=== PATIENT | male | born 1960 | race Caucasian/White ===

== ENCOUNTER 2017-10-28 17:56 | Emergency (ER) | payer BC ==
[2017-10-28] MEDS ORDERED: COLCHICINE 0.6 MG TAB ONE ×2 (18:56→20:38)
[2017-10-28] MEDS ORDERED: COLCHICINE 0.6 MG TAB PO ONE (19:00)
[2017-10-28] MEDS ORDERED: INDOMETHACIN 25 MG CAP PO ONE (19:00)
[2017-10-28] MEDS ORDERED: MORPHINE 4 MG/ML SYR ONE (19:37)
[2017-10-28] MEDS ORDERED: ONDANSETRON 4 MG (ODT) TAB ONE (19:37)
--- NOTE | 2017-10-28 20:29 | EDPHYS ---
Physician Documentation [facility] Name: Rui Burden Age: 57 yrs Sex: Male : 1960 Arrival Date: 10/28/2017 Time: 17:57 Bed 13 Private MD: ED Physician Jasen Oscar HPI: 10/28 18:38 This 57 yrs old Male presents to ER via Ambulatory with complaints of GOUT. jr8 18:38 The patient or guardian reports pain, swelling, tenderness, redness . The complaints jr8 affect the MCP of left little finger. Context: The problem was sustained at home. Onset: The symptoms/episode began/occurred acutely, today. Modifying factors: The symptoms are alleviated by nothing, the symptoms are aggravated by movement. Associated signs and symptoms: The patient has no apparent associated signs or symptoms. Severity of symptoms: At their worst the symptoms were mild, in the emergency department the symptoms are unchanged. The patient has experienced similar episodes in the past, a few times. The patient has not recently seen a physician. history of gout. Having flare up in left hand which is where he had it the last time . Historical: - Allergies: 18:06 No Known Allergies; tw2 - Home Meds: 18:06 metformin 1,000 mg oral tab [Active]; allopurinol 100 mg Oral tab 1 tab 3 times per day tw2 [Active]; glipizide 5 mg Oral tr24 1 tab once daily [Active]; amlodipine-valsartan 10-320 mg oral tab 1 tab once daily [Active]; lovastatin 40 mg Oral tab 1 tab once daily [Active]; - PMHx: 18:06 Diabetes - NIDDM; Hypertension; tw2 - PSHx: 18:06 Knee surgery; tw2 - Immunization history:: Adult Immunizations up to date. - Social history:: Smoking status: Patient/guardian denies using tobacco, Patient uses alcohol, occasionally. ROS: 18:38 Eyes: Negative for injury, pain, redness, and discharge, ENT: Negative for injury, jr8 pain, and discharge, Neck: Negative for injury, pain, and swelling, Cardiovascular: Negative for chest pain, palpitations, and edema, Respiratory: Negative for shortness of breath, cough, wheezing, and pleuritic chest pain, Abdomen/GI: Negative for abdominal pain, nausea, vomiting, diarrhea, and constipation, Back: Negative for injury and pain, Skin: Negative for injury, rash, and discoloration, Neuro: Negative for headache, weakness, numbness, tingling, and seizure. 18:38 MS/extremity: Positive for erythema, pain, swelling, tenderness, warmth, of the left hand. Exam: 18:38 Cardiovascular: Regular rate and rhythm with a normal S1 and S2. No gallops, murmurs, jr8 or rubs. Normal PMI, no JVD. No pulse deficits. Respiratory: Lungs have equal breath sounds bilaterally, clear to auscultation and percussion. No rales, rhonchi or wheezes noted. No increased work of breathing, no retractions or nasal flaring. Abdomen/GI: Soft, non-tender, with normal bowel sounds. No distension or tympany. No guarding or rebound. No evidence of tenderness throughout. Back: No spinal tenderness. No costovertebral tenderness. Full range of motion. Skin: Warm, dry with normal turgor. Normal color with no rashes, no lesions, and no evidence of cellulitis. Neuro: Awake and alert, GCS 15, oriented to person, place, time, and situation. Cranial nerves II-XII grossly intact. Motor strength 5/5 in all extremities. Sensory grossly intact. Cerebellar exam normal. Normal gait. 18:38 Musculoskeletal/extremity: Extremities: grossly normal except: noted in the MCP of left little finger: decreased ROM, erythema, pain, swelling, tenderness, Circulation is intact in all extremities. Sensation intact. Vital Signs: 18:03 BP 134 / 82; Pulse 92; Resp 18; Temp 97.9(O); Pulse Ox 97% on R/A; Weight 124.74 kg; tw2 Height 6 ft. 1 in. (185.42 cm); Pain 10/10; 19:43 BP 129 / 81; Pulse 88; Pulse Ox 96% on R/A; bs1 20:45 BP 131 / 89; Pulse 77; Resp 17; Temp 98(O); Pulse Ox 96% on R/A; Pain 0/10; bs1 18:03 Body Mass Index 36.28 (124.74 kg, 185.42 cm) tw2 MDM: 18:21 Patient medically screened. jr8 20:27 Data reviewed: vital signs, nurses notes, and as a result, I will discharge patient. jr8 Data interpreted: Pulse oximetry: on room air is 96 %. Interpretation: normal. Counseling: I had a detailed discussion with the patient and/or guardian regarding: the historical points, exam findings, and any diagnostic results supporting the discharge/admit diagnosis, the need for outpatient follow up, a family practitioner, to return to the emergency department if symptoms worsen or persist or if there are any questions or concerns that arise at home. Response to treatment: the patient's symptoms have markedly improved after treatment. Administered Medications: 19:03 Drug: Colcrys 1.2 mg Route: PO; jl7 21:12 Follow up: Response: No adverse reaction bs1 19:13 Drug: Indomethacin 50 mg Route: PO; bs1 21:13 Follow up: Response: No adverse reaction bs1 19:41 Drug: morphine 4 mg Route: IM; Site: left deltoid; bs1 21:12 Follow up: Response: No adverse reaction bs1 19:42 Drug: Zofran 4 mg Route: PO; bs1 21:12 Follow up: Response: No adverse reaction bs1 20:45 Drug: Colcrys 0.6 mg Route: PO; bs1 21:12 Follow up: Response: No adverse reaction bs1 Disposition: 21:31 Co-signature as Attending Physician, Jasen Oscar MD. Disposition: 10/28/17 20:28 Discharged to Home. Impression: Gout. - Condition is Stable. - Discharge Instructions: Gout. - Prescriptions for Colcrys 0.6 mg Oral tablet - take 1 tablet by ORAL route 2 times per day; 6 tablet. indomethacin 50 mg Oral capsule - take 1 capsule by ORAL route 3 times per day with food; 15 capsule. Tylenol- Codeine #3 300-30 mg Oral Tablet - take 2 tablet by ORAL route every 6 hours As needed; 30 tablet. - Medication Reconciliation Form, Thank You Letter, Antibiotic Education, Prescription Opioid Use form. - Follow up: Private Physician; When: 2 - 3 days; Reason: Recheck today's complaints, Continuance of care, Re-evaluation by your physician. - Problem is new. - Symptoms have improved. Signatures: Christian Germain PA PA jr8 Syeda Valladares RN RN tw2 Presley Jesus RN RN jl7 Jasen Oscar MD MD gs Chaidez, Tiffanie, RN RN bs1
--- NOTE | 2017-10-28 20:29 | ER ---
Nurse's Notes [facility] Name: Rui Burden Age: 57 yrs Sex: Male : 1960 Arrival Date: 10/28/2017 Time: 17:57 Bed 13 Private MD: Diagnosis: Gout Presentation: 10/28 18:02 Presenting complaint: Patient states: this gout just popped up about 45 minutes ago, tw2 gout on my LEFT hand. Transition of care: patient was not received from another setting of care. Onset of symptoms was October 28, 2017. Initial Sepsis Screen: Does the patient meet any 2 criteria? No. Patient's initial sepsis screen is negative. Does the patient have a suspected source of infection? No. Patient's initial sepsis screen is negative. Care prior to arrival: None. 18:02 Method Of Arrival: Ambulatory tw2 18:02 Acuity: CINDI 3 tw2 Historical: - Allergies: 18:06 No Known Allergies; tw2 - Home Meds: 18:06 metformin 1,000 mg oral tab [Active]; allopurinol 100 mg Oral tab 1 tab 3 times per day tw2 [Active]; glipizide 5 mg Oral tr24 1 tab once daily [Active]; amlodipine-valsartan 10-320 mg oral tab 1 tab once daily [Active]; lovastatin 40 mg Oral tab 1 tab once daily [Active]; - PMHx: 18:06 Diabetes - NIDDM; Hypertension; tw2 - PSHx: 18:06 Knee surgery; tw2 - Immunization history:: Adult Immunizations up to date. - Social history:: Smoking status: Patient/guardian denies using tobacco, Patient uses alcohol, occasionally. Screenin:18 Abuse screen: Denies threats or abuse. Denies injuries from another. Nutritional jl7 screening: No deficits noted. Tuberculosis screening: No symptoms or risk factors identified. Fall Risk None identified. Assessment: 18:18 General: Appears in no apparent distress. uncomfortable, Behavior is calm, cooperative, jl7 appropriate for age. Pain: Complains of pain in dorsal aspect of proximal phalanx of left index finger and dorsal aspect of proximal phalanx of left little finger Pain radiates to left elbow Pain currently is 10 out of 10 on a pain scale. Quality of pain is described as throbbing, Is continuous. Neuro: Level of Consciousness is awake, alert, obeys commands, Oriented to person, place, time, situation. Cardiovascular: Patient's skin is warm and dry. Respiratory: Airway is patent Respiratory effort is even, unlabored, Respiratory pattern is regular, symmetrical. Derm: Skin is pink, warm \T\ dry. Musculoskeletal: Swelling present in dorsal aspect of proximal phalanx of left index finger and dorsal aspect of proximal phalanx of left little finger. 19:08 Reassessment: Report received from MEHRDAD Sherwood. bs1 20:00 Reassessment: No changes from previously documented assessment. Patient and/or family bs1 updated on plan of care and expected duration. Pain level reassessed. Patient is alert, oriented x 3, equal unlabored respirations, skin warm/dry/pink. Patient states symptoms have improved. Vital Signs: 18:03 BP 134 / 82; Pulse 92; Resp 18; Temp 97.9(O); Pulse Ox 97% on R/A; Weight 124.74 kg; tw2 Height 6 ft. 1 in. (185.42 cm); Pain 10/10; 19:43 BP 129 / 81; Pulse 88; Pulse Ox 96% on R/A; bs1 20:45 BP 131 / 89; Pulse 77; Resp 17; Temp 98(O); Pulse Ox 96% on R/A; Pain 0/10; bs1 18:03 Body Mass Index 36.28 (124.74 kg, 185.42 cm) tw2 ED Course: 17:57 Patient arrived in ED. tw3 18:03 Triage completed. tw2 18:03 Arm band placed on. tw2 18:09 Presley Jesus RN is Primary Nurse. jl7 18:18 Patient has correct armband on for positive identification. Bed in low position. Call jl7 light in reach. Side rails up X 1. Pulse ox on. NIBP on. 18:20 Christian Germain PA is PHCP. jr8 18:20 Jasen Oscar MD is Attending Physician. jr8 21:13 No provider procedures requiring assistance completed. Patient did not have IV access bs1 during this emergency room visit. Administered Medications: 19:03 Drug: Colcrys 1.2 mg Route: PO; jl7 21:12 Follow up: Response: No adverse reaction bs1 19:13 Drug: Indomethacin 50 mg Route: PO; bs1 21:13 Follow up: Response: No adverse reaction bs1 19:41 Drug: morphine 4 mg Route: IM; Site: left deltoid; bs1 21:12 Follow up: Response: No adverse reaction bs1 19:42 Drug: Zofran 4 mg Route: PO; bs1 21:12 Follow up: Response: No adverse reaction bs1 20:45 Drug: Colcrys 0.6 mg Route: PO; bs1 21:12 Follow up: Response: No adverse reaction bs1 Outcome: 20:28 Discharge ordered by . shelbie 21:13 Discharged to home ambulatory, with significant other. bs1 21:13 Condition: stable 21:13 Discharge instructions given to patient, Instructed on discharge instructions, follow up and referral plans. medication usage, Demonstrated understanding of instructions, follow-up care, medications, Prescriptions given X 3. 21:14 Patient left the ED. bs1 Signatures: Christian Germain PA PA jr8 Syeda Valladares RN RN tw2 Presley Jesus RN RN jl7 Mckenzie Cervantes tw3 Tiffanie Chaidez RN RN bs1
== END 2017-10-28 21:14 | disposition home or self-care (01) ==
LOC: ER 17:56
DX: M10.9 Gout, unspecified (principal); I10 Essential (primary) hypertension; E11.9 Type 2 diabetes mellitus without complications
CPT/HCPCS: 96372; 99283